=== PATIENT | male | born 1995 | race Caucasian/White ===

== ENCOUNTER 2019-08-26 17:33 | Emergency (ER) | payer OTHER ==
[~2019-08-26] VITALS: Ht 183 cm; Wt 75.0 kg
[2019-08-26 17:56] VITALS: BP 133/87; TEMP 97.3
[2019-08-26 18:10] VITALS: PULSE 61
== END 2019-08-26 18:16 | disposition home or self-care (01) ==
LOC: COL.ER 17:33
DX: S61.213A Laceration without foreign body of left middle finger without damage to nail, initial encounter (principal); W26.0XXA Contact with knife, initial encounter; Y92.009 Unspecified place in unspecified non-institutional (private) residence as the place of occurrence of the external cause